=== PATIENT | female | born 1980 | race Caucasian/White ===

== ENCOUNTER 2016-08-25 11:32 | Emergency (ER) | payer MEDICAID ==
[~2016-08-25] VITALS: Ht 154.9 cm; Wt 100.0 kg
[~2016-08-25 11:32] MED LIST: ABILIFY 10MG TA10 MG PO; ANTIVERT 25MG25 MG PO; ANXIETY MED; ATARAX 25MG25 MG/TAB PO; BACTRIM DS 8001 TAB PO; BUSPAR DIVIDOSE15 MG PO; BUSPAR10 MG PO; CARAFATE 1GM1 G PO; CELEXA 20MG20 MG/TAB PO; CEPHALEXIN500 M1 PO; CIPRO 500MG TA500 MG PO; CLEOCIN HC150 MG/CAP PO; CLONAZEPAM PO; DIAZEPAM PO; DIET MED; DOXYCYCLINE 10100 MG PO; DROSPIRENONE; EPI EZ PEN1 MG/ML IM; FLEXERIL 1010 MG/TAB PO; FLEXERIL PO; FLEXERIL10 MG PO; GLUCOPHAGE500 MG/TAB PO; INDERAL 10MG10 MG PO; KLONOPIN 0.5MG0.5 MG PO; LAMICTAL 25MG T25 MG PO; LAMICTAL150 MG PO; LEVAQUIN 750MG750 M1 PO; LORTAB 5/500 501 TAB PO; MACROBID 1100 MG/CAP PO; MEDROL 4MG DOSPA4 MG PO; METRONIDAZOLE500 MG PO; MOTRIN 800800 MG/TAB PO; MOTRIN800 MG PO; NAPROSYN PO; NAPROSYN500 MG PO; NAPROXEN EC500 MG PO; NO HOME MEDICATIONS; NORCO 325 MG-51 TAB PO; NORCO 325 MG-7.1 TAB PO; PANTOPRAZOLE40 MG PO; PAROXETINE20 MG PO; PERCOCET 325 MG1 TA2 PO; PERCOCET 5/321 UDTAB PO; PHENERGAN 25 TA25 MG PO; PHENERGAN W/CO120 ML PO; PHENERGAN25 MG RC; PREDNISONE20 MG PO; PRENATAL1 TA1 PO; PRIL40 PO; PROTONIX 40MG T40 MG PO; SEPTRA DS 8001 TAB PO; TYLENOL W/COD1 UDTAB PO; ULTRAM 50MG TAB50 MG PO; VALIUM 5MG T5 MG/TAB PO; VALIUM5 MG PO; VISTARIL 2525 MG/CAP; WELLBUTRIN PO; YAZ; ZITHROMAX 250M250 MG PO; ZITHROMAX Z PA250 MG PO; ZOFRAN ODT4 MG PO; ZOLOFT 25MG25 MG PO; ZOLOFT 50MG50 MG PO; [UNRECOGNIZED DRUG - REMARK]; phentermine
[2016-08-25 11:49] VITALS: BP 122/70; PULSE 55; TEMP 97.7
== END 2016-08-25 12:09 | disposition left against medical advice (07) ==
LOC: COL.ER 11:32
DX: M54.5 Low back pain (principal)

== ENCOUNTER 2016-10-24 23:26 | Emergency (ER) | payer MEDICAID ==
[~2016-10-24] VITALS: Ht 154.9 cm; Wt 90.9 kg
[2016-10-24 23:30] VITALS: BP 127/80; TEMP 98.3
[2016-10-25 00:33] VITALS: PULSE 75
== END 2016-10-25 00:33 | disposition home or self-care (01) ==
LOC: COL.ER 23:26
DX: J06.9 Acute upper respiratory infection, unspecified (principal); E11.9 Type 2 diabetes mellitus without complications; F17.210 Nicotine dependence, cigarettes, uncomplicated

== ENCOUNTER 2016-11-05 17:27 | Emergency (ER) | payer MEDICAID ==
[~2016-11-05] VITALS: Ht 154.9 cm; Wt 90.9 kg
[2016-11-05 17:39] VITALS: BP 115/75; TEMP 98.2
[2016-11-05] MEDS ORDERED: FLEXERIL 1010 MG/TAB PO (19:28)
[2016-11-05] MEDS ORDERED: NORCO 325 MG-51 TAB PO (19:28)
[2016-11-05 19:39] VITALS: PULSE 78
== END 2016-11-05 19:39 | disposition home or self-care (01) ==
LOC: COL.ER 17:27
DX: M25.511 Pain in right shoulder (principal); M62.830 Muscle spasm of back
CPT/HCPCS: J2360

== ENCOUNTER 2016-12-08 10:21 | Emergency (ER) | payer MEDICAID ==
[~2016-12-08] VITALS: Ht 154.9 cm; Wt 90.9 kg
[2016-12-08 10:23] VITALS: TEMP 98.4
[2016-12-08 10:56] LABS: AMPHETAMINE URINE NEGATIVE; BARBITURATES URINE NEGATIVE; BENZODIAZEPINES URINE NEGATIVE; METHADONE URINE NEGATIVE; OPIATES URINE NEGATIVE; OXYCODONE URINE NEGATIVE; PHENCYCLIDINE URINE NEGATIVE; PROPOXYPHENE URINE NEGATIVE; THC CANNABINOIDS URINE POSITIVE
[2016-12-08 11:05] LABS: BASO % 0.5 % (0.0-2.0); EOS # 0.1 (0.0-0.7); EOS % 1.7 % (0-4.0); GRAN # 5.5 (1.4-6.5); HEMATOCRIT 40.9 % (37.0-47.0); HEMOGLOBIN 13.9 g/dl (12.5-16.0); LYMPH # 2.2 (1.2-3.4); LYMPH % 26.1 % (20.0-51.0); MEAN CELL VOLUME 88 fl (80.0-100.0); MEAN CORPUSCULAR HEMOGLOBIN 30 pg (27.0-31.0); MEAN CORPUSCULAR HGB CONC 34 g/dl (33.0-37.0); MEAN PLATELET VOLUME 10.6 fl (7.4-10.4); MONO # 0.6 (0.1-0.6); MONO % 6.5 % (1.7-9.3); PLATELET COUNT 256 K/mm3 (130-400); RED BLOOD COUNT 4.66 M/mm3 (4.10-5.30); REDCELL DISTRIBUTION WIDTH-CV 13.2 % (11.5-14.5); WHITE BLOOD COUNT 8.4 K/mm3 (4.8-10.8)
[2016-12-08 11:15] LABS: ADJUSTED CALCIUM 9.2 mg/dL (8.4-10.2); ALANINE AMINOTRANSFERASE 19 U/L (9-52); ALKALINE PHOSPHATASE 85 U/L (50-136); ANION GAP 11 mmol/L (7-16); BILIRUBIN,TOTAL 1.1 mg/dL (0.0-1.0); BLOOD UREA NITROGEN 8 mg/dL (7-17); CALCIUM 9.2 mg/dL (8.4-10.2); CARBON DIOXIDE 24 mmol/L (22-30); CHLORIDE 105 mmol/L (98-107); CREATININE, serum 0.69 mg/dL (0.52-1.25); GLUCOSE 100 mg/dL (74-106); POTASSIUM 3.8 mmol/L (3.4-5.0); SODIUM 140 mmol/L (137-145); TOTAL PROTEIN 7.2 gm/dL (6.4-8.2)
[2016-12-08 13:00] VITALS: BP 134/78; PULSE 62
== END 2016-12-08 13:04 | disposition home or self-care (01) ==
LOC: COL.ER 10:21
PROVIDERS: Family Medicine
DX: F32.9 Major depressive disorder, single episode, unspecified (principal); R45.851 Suicidal ideations

== ENCOUNTER 2016-12-15 02:11 | Emergency (ER) | payer MEDICAID ==
[~2016-12-15] VITALS: Ht 154.9 cm; Wt 90.0 kg
[2016-12-15 02:13] VITALS: BP 140/85; TEMP 98
[2016-12-15] MEDS ORDERED: ZOLOFT 100MG100 MG PO (02:18)
[2016-12-15] MEDS ORDERED: ABILIFY2 MG PO (02:18)
[2016-12-15] MEDS ORDERED: BUSPAR10 MG PO (02:18)
[2016-12-15] MEDS ORDERED: BACTRIM DS 8001 TAB PO (02:39)
[2016-12-15 02:50] VITALS: PULSE 90
== END 2016-12-15 02:51 | disposition home or self-care (01) ==
LOC: COL.ER 02:11
DX: S60.021A Contusion of right index finger without damage to nail, initial encounter (principal); S60.410A Abrasion of right index finger, initial encounter; Y04.1XXA Assault by human bite, initial encounter

== ENCOUNTER 2017-01-02 12:19 | Emergency (ER) | payer MEDICAID ==
[~2017-01-02] VITALS: Ht 154.9 cm; Wt 92.3 kg
[~2017-01-02 12:19] MED LIST changes: +ABILIFY2 MG PO; +ZOLOFT 100MG100 MG PO
[2017-01-02 12:35] VITALS: BP 125/77; PULSE 64; TEMP 98.1
[2017-01-02] MEDS ORDERED: ELIMITE TOP (13:32)
== END 2017-01-02 14:01 | disposition home or self-care (01) ==
LOC: COL.ER 12:19
DX: B86 Scabies (principal)

== ENCOUNTER 2017-03-04 18:27 | Emergency (ER) | payer MEDICAID ==
[~2017-03-04] VITALS: Ht 157.5 cm; Wt 86.4 kg
[~2017-03-04 18:27] MED LIST changes: +ELIMITE TOP
[2017-03-04 18:31] VITALS: TEMP 98.1
[2017-03-04] MEDS ORDERED: PHENERGAN 25 TA25 MG PO (20:05)
[2017-03-04 20:59] VITALS: BP 100/55; PULSE 59
== END 2017-03-04 21:01 | disposition home or self-care (01) ==
LOC: COL.ER 18:27
DX: R51 Headache (principal)
CPT/HCPCS: J1200; J1630; J7030

== ENCOUNTER 2017-07-06 16:06 | Emergency (ER) | payer MEDICAID ==
[~2017-07-06] VITALS: Ht 154.9 cm; Wt 86.4 kg
[2017-07-06 16:07] VITALS: BP 117/86; PULSE 116; TEMP 99
[2017-07-06] MEDS ORDERED: KLONOPIN 0.5MG0.5 MG PO (16:12)
[2017-07-06 16:43] LABS: COLLECTION METHOD CLEAN CATCH
[2017-07-06 16:57] LABS: AMORPHOUS CRYSTAL Present /uL; MUCOUS Present /lpf; PH 9 (5-8); URINE APPEARANCE Cloudy; URINE BACTERIA None Seen /hpf; URINE BILIRUBIN Negative (NEGATIVE); URINE BLOOD Negative (NEGATIVE); URINE COLOR Yellow; URINE GLUCOSE Negative (NEGATIVE); URINE KETONE Negative (NEGATIVE); URINE LEUKOCYTE ESTERASE Negative (NEGATIVE); URINE PROTEIN(semi-quant) 2+ (NEGATIVE)
[2017-07-06 17:03] LABS: BASO % 0.3 % (0.0-2.0); EOS # 0.1 (0.0-0.7); EOS % 1.4 % (0-4.0); GRAN # 6.8 (1.4-6.5); GRAN % 70.8 % (42.2-75.2); HEMATOCRIT 43.3 % (37.0-47.0); HEMOGLOBIN 14.6 g/dl (12.5-16.0); LYMPH # 1.9 (1.2-3.4); LYMPH % 19.4 % (20.0-51.0); MEAN CELL VOLUME 89 fl (80.0-100.0); MEAN CORPUSCULAR HEMOGLOBIN 30 pg (27.0-31.0); MEAN CORPUSCULAR HGB CONC 34 g/dl (33.0-37.0); MEAN PLATELET VOLUME 10.2 fl (7.4-10.4); MONO # 0.8 (0.1-0.6); MONO % 7.9 % (1.7-9.3); PLATELET COUNT 252 K/mm3 (130-400); RED BLOOD COUNT 4.85 M/mm3 (4.10-5.30); WHITE BLOOD COUNT 9.6 K/mm3 (4.8-10.8)
[2017-07-06 17:10] LABS: AMPHETAMINE URINE NEGATIVE; BARBITURATES URINE NEGATIVE; BENZODIAZEPINES URINE NEGATIVE; BUPRENORPHINE URINE NEGATIVE; METHADONE URINE NEGATIVE; OPIATES URINE NEGATIVE; OXYCODONE URINE NEGATIVE; PHENCYCLIDINE URINE NEGATIVE; PROPOXYPHENE URINE NEGATIVE; THC CANNABINOIDS URINE POSITIVE; TRICYCLIC ANTIDEPRESS URINE NEGATIVE
[2017-07-06 17:21] LABS: ACETAMINOPHEN < 10 ug/mL (10-30); ADJUSTED CALCIUM 9.3 mg/dL (8.4-10.2); ALANINE AMINOTRANSFERASE 21 U/L (9-52); ALBUMIN 4.4 gm/dL (3.5-5.0); ALCOHOL(ethanol),MEDICAL < 10 mg/dL; ALKALINE PHOSPHATASE 84 U/L (50-136); ANION GAP 9 mmol/L (7-16); BILIRUBIN,TOTAL 1.1 mg/dL (0.0-1.0); BLOOD UREA NITROGEN 10 mg/dL (7-17); CALCIUM 9.6 mg/dL (8.4-10.2); CARBON DIOXIDE 32 mmol/L (22-30); CHLORIDE 98 mmol/L (98-107); CREATININE, serum 0.81 mg/dL (0.52-1.25); GLUCOSE 79 mg/dL (74-106); POTASSIUM 3.2 mmol/L (3.4-5.0); SALICYLATE < 1.0 mg/dL; SODIUM 139 mmol/L (137-145); TOTAL PROTEIN 7.8 gm/dL (6.4-8.2)
== END 2017-07-06 18:46 | disposition home or self-care (01) ==
LOC: COL.ER 16:06
PROVIDERS: Emergency Medicine
DX: F31.9 Bipolar disorder, unspecified (principal); F12.10 Cannabis abuse, uncomplicated; F15.10 Other stimulant abuse, uncomplicated; F17.210 Nicotine dependence, cigarettes, uncomplicated

== ENCOUNTER 2017-07-20 10:13 | Emergency (ER) | payer MEDICAID ==
[~2017-07-20] VITALS: Ht 154.9 cm; Wt 85.5 kg
[2017-07-20 10:15] VITALS: TEMP 98.2
[2017-07-20 11:16] LABS: COLLECTION METHOD CLEAN CATCH
[2017-07-20 11:17] LABS: BASO % 0.5 % (0.0-2.0); EOS # 0.1 (0.0-0.7); EOS % 1.1 % (0-4.0); GRAN % 71.7 % (42.2-75.2); HEMATOCRIT 42.7 % (37.0-47.0); HEMOGLOBIN 14.9 g/dl (12.5-16.0); LYMPH # 1.6 (1.2-3.4); LYMPH % 19.5 % (20.0-51.0); MEAN CELL VOLUME 85 fl (80.0-100.0); MEAN CORPUSCULAR HEMOGLOBIN 30 pg (27.0-31.0); MEAN CORPUSCULAR HGB CONC 35 g/dl (33.0-37.0); MEAN PLATELET VOLUME 10.1 fl (7.4-10.4); MONO # 0.6 (0.1-0.6); MONO % 6.8 % (1.7-9.3); PLATELET COUNT 292 K/mm3 (130-400); WHITE BLOOD COUNT 8.3 K/mm3 (4.8-10.8)
[2017-07-20 11:37] LABS: ADJUSTED CALCIUM 9.2 mg/dL (8.4-10.2); ALBUMIN 4.4 gm/dL (3.5-5.0); BILIRUBIN,TOTAL 1.7 mg/dL (0.0-1.0); CALCIUM 9.5 mg/dL (8.4-10.2); CREATININE, serum 0.76 mg/dL (0.52-1.25); POTASSIUM 3.3 mmol/L (3.4-5.0); TOTAL PROTEIN 7.9 gm/dL (6.4-8.2)
[2017-07-20 11:39] LABS: PH 9 (5-8); SQUAMOUS EPITHELIAL 0-2 /hpf; URINE APPEARANCE Clear; URINE BACTERIA None Seen /hpf; URINE BILIRUBIN Negative (NEGATIVE); URINE BLOOD Negative (NEGATIVE); URINE COLOR Yellow; URINE GLUCOSE Negative (NEGATIVE); URINE KETONE Negative (NEGATIVE); URINE LEUKOCYTE ESTERASE 1+ (NEGATIVE); URINE PROTEIN(semi-quant) 2+ (NEGATIVE); URINE UROBILINOGEN Negative (NEGATIVE)
[2017-07-20 11:53] LABS: AMPHETAMINE URINE NEGATIVE; BARBITURATES URINE NEGATIVE; BENZODIAZEPINES URINE NEGATIVE; BUPRENORPHINE URINE NEGATIVE; METHADONE URINE NEGATIVE; OPIATES URINE NEGATIVE; OXYCODONE URINE NEGATIVE; PHENCYCLIDINE URINE NEGATIVE; PROPOXYPHENE URINE NEGATIVE; THC CANNABINOIDS URINE POSITIVE; TRICYCLIC ANTIDEPRESS URINE NEGATIVE
[2017-07-20] MEDS ORDERED: MACROBID 1100 MG/CAP PO (13:10)
[2017-07-20 13:23] VITALS: BP 123/70; PULSE 72
== END 2017-07-20 13:24 | disposition home or self-care (01) ==
LOC: COL.ER 10:13
PROVIDERS: Emergency Medicine
DX: F41.0 Panic disorder [episodic paroxysmal anxiety] (principal); N39.0 Urinary tract infection, site not specified; R20.2 Paresthesia of skin; F31.9 Bipolar disorder, unspecified; Z90.49 Acquired absence of other specified parts of digestive tract; Z98.890 Other specified postprocedural states; F17.210 Nicotine dependence, cigarettes, uncomplicated; F15.90 Other stimulant use, unspecified, uncomplicated

== ENCOUNTER 2017-09-13 10:05 | Emergency (ER) | payer MEDICAID ==
[~2017-09-13] VITALS: Ht 154.9 cm; Wt 88.6 kg
[2017-09-13 10:17] VITALS: BP 139/81; TEMP 98.7
[2017-09-13] MEDS ORDERED: CLEOCIN HCL300 MG PO (11:36)
[2017-09-13 11:51] VITALS: PULSE 80
== END 2017-09-13 11:52 | disposition home or self-care (01) ==
LOC: COL.ER 10:05
DX: L03.211 Cellulitis of face (principal); J45.909 Unspecified asthma, uncomplicated; F32.9 Major depressive disorder, single episode, unspecified; F17.210 Nicotine dependence, cigarettes, uncomplicated

== ENCOUNTER 2017-10-06 08:47 | Emergency (ER) | payer MEDICAID ==
[~2017-10-06] VITALS: Ht 154.9 cm; Wt 84.1 kg
[~2017-10-06 08:47] MED LIST changes: +CLEOCIN HCL300 MG PO
[2017-10-06 08:52] VITALS: BP 124/72
[2017-10-06] MEDS ORDERED: NORCO 325 MG-51 TAB PO (09:43)
[2017-10-06] MEDS ORDERED: CLEOCIN HC150 MG/CAP PO (09:43)
[2017-10-06 09:52] VITALS: PULSE 67; TEMP 98.3
== END 2017-10-06 09:53 | disposition home or self-care (01) ==
LOC: COL.ER 08:47
DX: L02.212 Cutaneous abscess of back [any part, except buttock and flank] (principal); K08.89 Other specified disorders of teeth and supporting structures; F17.210 Nicotine dependence, cigarettes, uncomplicated

== ENCOUNTER 2017-10-10 17:55 | Emergency (ER) | payer MEDICAID ==
[~2017-10-10] VITALS: Ht 154.9 cm; Wt 84.1 kg
[2017-10-10 17:59] VITALS: BP 143/66; TEMP 97.1
[2017-10-10 20:15] VITALS: PULSE 80
== END 2017-10-10 20:17 | disposition home or self-care (01) ==
LOC: COL.ER 17:55
DX: K02.9 Dental caries, unspecified (principal)
CPT/HCPCS: J1170

== ENCOUNTER 2018-03-06 16:08 | Emergency (ER) | payer MEDICAID ==
[~2018-03-06] VITALS: Ht 154.9 cm; Wt 94.1 kg
[2018-03-06 16:10] VITALS: BP 114/50
[2018-03-06] MEDS ORDERED: CRUTCHES MC (18:06)
[2018-03-06 18:43] VITALS: PULSE 108
== END 2018-03-06 18:45 | disposition home or self-care (01) ==
LOC: COL.ER 16:08
DX: S70.02XA Contusion of left hip, initial encounter (principal); F31.9 Bipolar disorder, unspecified; F17.210 Nicotine dependence, cigarettes, uncomplicated; F12.90 Cannabis use, unspecified, uncomplicated; Z88.0 Allergy status to penicillin; Z90.49 Acquired absence of other specified parts of digestive tract; W18.39XA Other fall on same level, initial encounter
CPT/HCPCS: J3010

== ENCOUNTER 2018-05-31 20:32 | Emergency (ER) | payer MEDICAID ==
[~2018-05-31] VITALS: Ht 157.5 cm; Wt 101.4 kg
[~2018-05-31 20:32] MED LIST changes: +CRUTCHES MC
[2018-05-31 20:37] VITALS: BP 129/79; TEMP 98.2
[2018-05-31 21:26] LABS: COLLECTION METHOD CLEAN CATCH
[2018-05-31 21:55] LABS: MUCOUS Present /lpf; PH 5 (5-8); URINE APPEARANCE Hazy; URINE BACTERIA None Seen /hpf; URINE BILIRUBIN Negative (NEGATIVE); URINE BLOOD 2+ (NEGATIVE); URINE COLOR Yellow; URINE GLUCOSE Negative (NEGATIVE); URINE KETONE Negative (NEGATIVE); URINE LEUKOCYTE ESTERASE 1+ (NEGATIVE); URINE NITRATE Negative (NEGATIVE); URINE PROTEIN(semi-quant) Negative (NEGATIVE)
[2018-05-31 22:03] LABS: BASO # 0.1 (0.0-0.2); BASO % 0.6 % (0.0-2.0); EOS # 0.2 (0.0-0.7); EOS % 1.7 % (0-4.0); GRAN # 5.6 (1.4-6.5); HEMATOCRIT 38.7 % (37.0-47.0); HEMOGLOBIN 13.2 g/dl (12.5-16.0); LYMPH # 2.5 (1.2-3.4); LYMPH % 27.4 % (20.0-51.0); MEAN CELL VOLUME 88 fl (80.0-100.0); MEAN CORPUSCULAR HEMOGLOBIN 30 pg (27.0-31.0); MEAN CORPUSCULAR HGB CONC 34 g/dl (33.0-37.0); MEAN PLATELET VOLUME 10.2 fl (7.4-10.4); MONO # 0.7 (0.1-0.6); MONO % 8.1 % (1.7-9.3); PLATELET COUNT 272 K/mm3 (130-400); RED BLOOD COUNT 4.41 M/mm3 (4.10-5.30); REDCELL DISTRIBUTION WIDTH-CV 12.2 % (11.5-14.5)
[2018-05-31 22:18] LABS: ALBUMIN 3.9 gm/dL (3.5-5.0); C-REACTIVE PROTEIN 0.8 mg/dL (0.0-0.9); CALCIUM 9.1 mg/dL (8.4-10.2); CREATININE, serum 0.69 mg/dL (0.52-1.25); POTASSIUM 4.1 mmol/L (3.4-5.0); TOTAL PROTEIN 7.3 gm/dL (6.4-8.2)
[2018-05-31] MEDS ORDERED: CEFTIN 250250 MG/TAB PO (23:41)
[2018-05-31] MEDS ORDERED: FLAGYL500 MG PO (23:41)
[2018-06-01 00:30] VITALS: PULSE 73
== END 2018-06-01 00:30 | disposition home or self-care (01) ==
LOC: COL.ER 20:32
PROVIDERS: Nurse Practitioner
DX: N39.0 Urinary tract infection, site not specified (principal); N76.0 Acute vaginitis; B96.89 Other specified bacterial agents as the cause of diseases classified elsewhere; F31.9 Bipolar disorder, unspecified; J45.909 Unspecified asthma, uncomplicated; F12.90 Cannabis use, unspecified, uncomplicated; F17.210 Nicotine dependence, cigarettes, uncomplicated; Z88.0 Allergy status to penicillin; Z88.5 Allergy status to narcotic agent; Z98.890 Other specified postprocedural states
CPT/HCPCS: J0696

== ENCOUNTER 2018-06-23 16:44 | Emergency (ER) | payer MEDICAID ==
[~2018-06-23] VITALS: Ht 154.9 cm; Wt 100.0 kg
[~2018-06-23 16:44] MED LIST changes: +CEFTIN 250250 MG/TAB PO; +FLAGYL500 MG PO
[2018-06-23 16:51] VITALS: BP 130/78; TEMP 98.6
[2018-06-23] MEDS ORDERED: ULTRAM 50MG TAB50 MG PO (19:37)
[2018-06-23 20:00] VITALS: PULSE 73
== END 2018-06-23 20:01 | disposition home or self-care (01) ==
LOC: COL.ER 16:44
DX: M25.552 Pain in left hip (principal); G89.29 Other chronic pain; F31.9 Bipolar disorder, unspecified; F17.210 Nicotine dependence, cigarettes, uncomplicated; Z91.5 Personal history of self-harm

== ENCOUNTER 2018-10-27 20:09 | Emergency (ER) | payer MEDICAID ==
[~2018-10-27] VITALS: Ht 154.9 cm; Wt 100.9 kg
[2018-10-27 20:19] VITALS: BP 133/82; TEMP 97.6
[2018-10-27 21:43] LABS: BASO % 0.5 % (0.0-2.0); EOS # 0.2 (0.0-0.7); EOS % 2.7 % (0-4.0); GRAN # 5.1 (1.4-6.5); GRAN % 61.6 % (42.2-75.2); HEMATOCRIT 45.5 % (37.0-47.0); HEMOGLOBIN 15.2 g/dl (12.5-16.0); LYMPH # 2.3 (1.2-3.4); LYMPH % 28.3 % (20.0-51.0); MEAN CELL VOLUME 87 fl (80.0-100.0); MEAN CORPUSCULAR HEMOGLOBIN 29 pg (27.0-31.0); MEAN CORPUSCULAR HGB CONC 33 g/dl (33.0-37.0); MEAN PLATELET VOLUME 10.2 fl (7.4-10.4); MONO # 0.6 (0.1-0.6); MONO % 6.7 % (1.7-9.3); PLATELET COUNT 283 K/mm3 (130-400); RED BLOOD COUNT 5.24 M/mm3 (4.10-5.30); REDCELL DISTRIBUTION WIDTH-CV 12.6 % (11.5-14.5)
[2018-10-27 21:45] LABS: INR 1.1 (0.8-3.0); PROTHROMBIN TIME 12.2 SECONDS (9.7-12.8)
[2018-10-27 21:48] LABS: PARTIAL THROMBOPLASTIN TIME 33.8 SECONDS (26.0-37.0)
[2018-10-27 21:52] LABS: ACETAMINOPHEN < 10 ug/mL (10-30); ALANINE AMINOTRANSFERASE 12 U/L (9-52); ALBUMIN 4.1 gm/dL (3.5-5.0); ALKALINE PHOSPHATASE 85 U/L (50-136); ANION GAP 7 mmol/L (7-16); AST,SGOT 18 U/L (15-37); BILIRUBIN,TOTAL 1.4 mg/dL (0.0-1.0); BLOOD UREA NITROGEN 13 mg/dL (7-17); CALCIUM 9.2 mg/dL (8.4-10.2); CARBON DIOXIDE 27 mmol/L (22-30); CHLORIDE 104 mmol/L (98-107); CREATININE, serum 0.83 mg/dL (0.52-1.25); GLUCOSE 95 mg/dL (74-106); LIPASE 56 U/L (23-300); SODIUM 138 mmol/L (137-145); TOTAL PROTEIN 7.7 gm/dL (6.4-8.2)
[2018-10-27] MEDS ORDERED: FLEXERIL 1010 MG/TAB PO (23:22)
[2018-10-28 00:05] VITALS: PULSE 88
[2018-10-28 14:52] LABS: COLLECTION METHOD CLEAN CATCH
[2018-10-28 15:05] LABS: AMORPHOUS CRYSTAL Present /uL; MUCOUS Present /lpf; PH 5 (5-8); URINE APPEARANCE Turbid; URINE BACTERIA None Seen /hpf; URINE BILIRUBIN Negative (NEGATIVE); URINE BLOOD 1+ (NEGATIVE); URINE CALCIUM OXALATE CRYSTAL Present /hpf; URINE COLOR Amber; URINE GLUCOSE Negative (NEGATIVE); URINE KETONE Negative (NEGATIVE); URINE LEUKOCYTE ESTERASE 2+ (NEGATIVE); URINE NITRATE Negative (NEGATIVE); URINE PROTEIN(semi-quant) 1+ (NEGATIVE); URINE RBC None Seen /hpf
== END 2018-10-28 00:05 | disposition home or self-care (01) ==
LOC: COL.ER 20:09
PROVIDERS: Emergency Medicine
DX: R07.89 Other chest pain (principal); F31.9 Bipolar disorder, unspecified; F17.210 Nicotine dependence, cigarettes, uncomplicated; F12.10 Cannabis abuse, uncomplicated
CPT/HCPCS: J1170

== ENCOUNTER 2018-12-16 19:14 | Emergency (ER) | payer MEDICAID ==
[~2018-12-16] VITALS: Ht 154.9 cm; Wt 94.1 kg
[2018-12-16 19:26] VITALS: BP 144/77; TEMP 97.4
[2018-12-16 20:05] VITALS: PULSE 85
== END 2018-12-16 20:05 | disposition home or self-care (01) ==
LOC: COL.ER 19:14
DX: M75.41 Impingement syndrome of right shoulder (principal); F17.210 Nicotine dependence, cigarettes, uncomplicated; W19.XXXA Unspecified fall, initial encounter; Y92.009 Unspecified place in unspecified non-institutional (private) residence as the place of occurrence of the external cause

== ENCOUNTER 2018-12-21 14:14 | Emergency (ER) | payer MEDICAID ==
[~2018-12-21] VITALS: Ht 154.9 cm; Wt 94.1 kg
[2018-12-21 14:20] VITALS: BP 126/80; TEMP 97.7
[2018-12-21] MEDS ORDERED: NORCO 325 MG-51 TAB PO (15:52)
[2018-12-21] MEDS ORDERED: FLEXERIL 1010 MG/TAB PO (15:55)
[2018-12-21 16:06] VITALS: PULSE 70
== END 2018-12-21 16:07 | disposition home or self-care (01) ==
LOC: COL.ER 14:14
DX: S49.91XA Unspecified injury of right shoulder and upper arm, initial encounter (principal); Z88.5 Allergy status to narcotic agent; Z88.0 Allergy status to penicillin; X58.XXXA Exposure to other specified factors, initial encounter; Y92.009 Unspecified place in unspecified non-institutional (private) residence as the place of occurrence of the external cause

== ENCOUNTER 2018-12-30 03:21 | Emergency (ER) | payer MEDICAID ==
[~2018-12-30] VITALS: Ht 154.9 cm; Wt 94.1 kg
[2018-12-30 03:29] VITALS: BP 129/68; TEMP 97
[2018-12-30 04:28] LABS: STREP SCREEN NEGATIVE
[2018-12-30 05:45] VITALS: PULSE 72
== END 2018-12-30 05:45 | disposition home or self-care (01) ==
LOC: COL.ER 03:21
PROVIDERS: Emergency Medicine
DX: J02.9 Acute pharyngitis, unspecified (principal); F17.210 Nicotine dependence, cigarettes, uncomplicated

== ENCOUNTER 2019-01-10 19:40 | Emergency (ER) | payer MEDICAID ==
[~2019-01-10] VITALS: Ht 154.9 cm; Wt 94.1 kg
[2019-01-10 19:46] VITALS: TEMP 99.7
[2019-01-10] MEDS ORDERED: ABILIFY5 MG PO (19:50)
[2019-01-10] MEDS ORDERED: BUSPAR10 MG PO (19:51)
[2019-01-10] MEDS ORDERED: KLONOPIN 0.5MG0.5 MG PO (19:51)
[2019-01-10] MEDS ORDERED: ZOLOFT 50MG50 MG PO (19:51)
[2019-01-10 20:18] LABS: STREP SCREEN NEGATIVE
[2019-01-10] MEDS ORDERED: ZITHROMAX Z PA250 MG PO (20:47)
[2019-01-10 21:08] VITALS: BP 141/72; PULSE 91
== END 2019-01-10 21:08 | disposition home or self-care (01) ==
LOC: COL.ER 19:40
PROVIDERS: Physician Assistant
DX: J02.9 Acute pharyngitis, unspecified (principal); F17.210 Nicotine dependence, cigarettes, uncomplicated
CPT/HCPCS: J1100

== ENCOUNTER 2019-01-26 20:13 | Emergency (ER) | payer MEDICAID ==
[~2019-01-26] VITALS: Ht 154.9 cm; Wt 94.1 kg
[~2019-01-26 20:13] MED LIST changes: +ABILIFY5 MG PO
[2019-01-26 20:28] VITALS: TEMP 98.4
[2019-01-26] MEDS ORDERED: NYSTATIN OR100 MU/ML PO (20:41)
[2019-01-26 21:07] VITALS: BP 110/68; PULSE 88
== END 2019-01-26 21:07 | disposition home or self-care (01) ==
LOC: COL.ER 20:13
DX: B37.9 Candidiasis, unspecified (principal); J45.909 Unspecified asthma, uncomplicated; F17.210 Nicotine dependence, cigarettes, uncomplicated

== ENCOUNTER 2019-01-30 20:03 | Emergency (ER) | payer MEDICAID ==
[~2019-01-30] VITALS: Ht 154.9 cm; Wt 94.1 kg
[~2019-01-30 20:03] MED LIST changes: +NYSTATIN OR100 MU/ML PO
[2019-01-30 20:06] VITALS: TEMP 98.8
[2019-01-30] MEDS ORDERED: FLEXERIL 1010 MG/TAB PO (20:58)
[2019-01-30] MEDS ORDERED: NORCO 325 MG-51 TAB PO (20:58)
[2019-01-30 21:06] VITALS: BP 134/81; PULSE 104
== END 2019-01-30 21:06 | disposition home or self-care (01) ==
LOC: COL.ER 20:03
DX: S39.012A Strain of muscle, fascia and tendon of lower back, initial encounter (principal); M54.42 Lumbago with sciatica, left side; F31.9 Bipolar disorder, unspecified; F41.9 Anxiety disorder, unspecified; Z98.51 Tubal ligation status; Z98.890 Other specified postprocedural states; Z90.49 Acquired absence of other specified parts of digestive tract; Z88.5 Allergy status to narcotic agent; Z88.0 Allergy status to penicillin; F17.210 Nicotine dependence, cigarettes, uncomplicated; F12.90 Cannabis use, unspecified, uncomplicated

== ENCOUNTER 2019-02-15 22:27 | Emergency (ER) | payer MEDICAID ==
[~2019-02-15] VITALS: Ht 154.9 cm; Wt 88.6 kg
[2019-02-15 22:42] VITALS: BP 126/77; PULSE 63; TEMP 97.9
== END 2019-02-16 | disposition left against medical advice (07) ==
LOC: COL.ER 22:27
DX: R51 Headache (principal)

== ENCOUNTER 2019-02-28 16:41 | Emergency (ER) | payer MEDICAID ==
[~2019-02-28] VITALS: Ht 152.4 cm; Wt 86.4 kg
[2019-02-28 16:55] VITALS: BP 126/84; TEMP 96
[2019-02-28 19:46] VITALS: PULSE 85
== END 2019-02-28 19:47 | disposition home or self-care (01) ==
LOC: COL.ER 16:41
DX: R51 Headache (principal); J45.909 Unspecified asthma, uncomplicated; F31.9 Bipolar disorder, unspecified; F17.210 Nicotine dependence, cigarettes, uncomplicated; F12.10 Cannabis abuse, uncomplicated; Z88.0 Allergy status to penicillin; Z88.6 Allergy status to analgesic agent
CPT/HCPCS: J1200; J2765

== ENCOUNTER 2019-08-28 09:58 | Emergency (ER) | payer SELFPAY ==
[~2019-08-28] VITALS: Ht 152.4 cm; Wt 95.5 kg
[2019-08-28 10:13] VITALS: TEMP 98.2
[2019-08-28 12:56] LABS: BASO # 0.1 (0.0-0.2); BASO % 0.7 % (0.0-2.0); EOS # 0.2 (0.0-0.7); EOS % 2.7 % (0-4.0); GRAN # 5.4 (1.4-6.5); GRAN % 66.4 % (42.2-75.2); HEMATOCRIT 41.5 % (37.0-47.0); HEMOGLOBIN 13.8 g/dl (12.5-16.0); LYMPH # 1.8 (1.2-3.4); LYMPH % 22.2 % (20.0-51.0); MEAN CELL VOLUME 91 fl (80.0-100.0); MEAN CORPUSCULAR HEMOGLOBIN 30 pg (27.0-31.0); MEAN CORPUSCULAR HGB CONC 33 g/dl (33.0-37.0); MEAN PLATELET VOLUME 10.5 fl (7.4-10.4); MONO # 0.6 (0.1-0.6); MONO % 7.5 % (1.7-9.3); PLATELET COUNT 237 K/mm3 (130-400); RED BLOOD COUNT 4.58 M/mm3 (4.10-5.30); REDCELL DISTRIBUTION WIDTH-CV 12.3 % (11.5-14.5)
[2019-08-28 13:18] LABS: ERYTHROCYTE SEDIMENTATION RATE 6 mm/hr (0-20)
[2019-08-28] MEDS ORDERED: PREDNISONE20 MG PO (13:36)
[2019-08-28] MEDS ORDERED: FLEXERIL 1010 MG/TAB PO (13:36)
[2019-08-28 14:01] VITALS: BP 122/75; PULSE 71
== END 2019-08-28 14:02 | disposition home or self-care (01) ==
LOC: COL.ER 09:58
PROVIDERS: Physician Assistant
DX: M25.552 Pain in left hip (principal); M54.9 Dorsalgia, unspecified; G89.29 Other chronic pain; F17.210 Nicotine dependence, cigarettes, uncomplicated; Z79.899 Other long term (current) drug therapy; Z88.0 Allergy status to penicillin; Z88.6 Allergy status to analgesic agent; Z98.890 Other specified postprocedural states

== ENCOUNTER 2019-10-09 20:40 | Emergency (ER) | payer SELFPAY ==
[~2019-10-09] VITALS: Ht 152.4 cm; Wt 100.0 kg
[2019-10-09 21:04] VITALS: BP 120/79; TEMP 98.6
[2019-10-09 22:11] LABS: STREP SCREEN NEGATIVE
[2019-10-09 22:50] VITALS: PULSE 58
== END 2019-10-09 22:50 | disposition home or self-care (01) ==
LOC: COL.ER 20:40
PROVIDERS: Nurse Practitioner
DX: J06.9 Acute upper respiratory infection, unspecified (principal); J45.909 Unspecified asthma, uncomplicated; F31.9 Bipolar disorder, unspecified; F17.210 Nicotine dependence, cigarettes, uncomplicated; Z88.0 Allergy status to penicillin; Z88.5 Allergy status to narcotic agent; Z79.52 Long term (current) use of systemic steroids

== ENCOUNTER 2019-10-20 23:13 | Emergency (ER) | payer SELFPAY ==
[~2019-10-20] VITALS: Ht 152.4 cm; Wt 100.0 kg
[2019-10-20 23:24] VITALS: BP 125/76; TEMP 98
[2019-10-21 01:49] LABS: BASO % 0.3 % (0.0-2.0); EOS # 0.2 (0.0-0.7); EOS % 1.6 % (0-4.0); GRAN # 6.8 (1.4-6.5); GRAN % 63.7 % (42.2-75.2); HEMATOCRIT 43.3 % (37.0-47.0); HEMOGLOBIN 14.4 g/dl (12.5-16.0); LYMPH # 2.7 (1.2-3.4); LYMPH % 25.6 % (20.0-51.0); MEAN CELL VOLUME 89 fl (80.0-100.0); MEAN CORPUSCULAR HEMOGLOBIN 30 pg (27.0-31.0); MEAN CORPUSCULAR HGB CONC 33 g/dl (33.0-37.0); MEAN PLATELET VOLUME 10.2 fl (7.4-10.4); MONO # 0.9 (0.1-0.6); MONO % 8.3 % (1.7-9.3); PLATELET COUNT 295 K/mm3 (130-400); RED BLOOD COUNT 4.85 M/mm3 (4.10-5.30); REDCELL DISTRIBUTION WIDTH-CV 12.5 % (11.5-14.5)
[2019-10-21 02:07] LABS: ALBUMIN 4.3 gm/dL (3.5-5.0); BILIRUBIN,TOTAL 0.9 mg/dL (0.0-1.0); CALCIUM 9.3 mg/dL (8.4-10.2); CREATININE, serum 0.66 (0.52-1.25); POTASSIUM 3.6 mmol/L (3.4-5.0); TOTAL PROTEIN 7.7 gm/dL (6.4-8.2)
[2019-10-21 02:32] VITALS: PULSE 88
== END 2019-10-21 02:31 | disposition home or self-care (01) ==
LOC: COL.ER 23:13
PROVIDERS: Emergency Medicine
DX: Z00.00 Encounter for general adult medical examination without abnormal findings (principal); F17.210 Nicotine dependence, cigarettes, uncomplicated; Z90.89 Acquired absence of other organs

== ENCOUNTER 2020-01-13 21:19 | Emergency (ER) | payer SELFPAY ==
[~2020-01-13] VITALS: Ht 152.4 cm; Wt 97.7 kg
[2020-01-13] MEDS ORDERED: ZITHROMAX 250M250 MG PO (22:50)
[2020-01-13] MEDS ORDERED: PREDNISONE20 MG PO (22:50)
[2020-01-13 23:35] VITALS: BP 110/78; PULSE 88; TEMP 98.8
== END 2020-01-13 23:45 | disposition home or self-care (01) ==
LOC: COL.ER 21:19
DX: J45.909 Unspecified asthma, uncomplicated (principal); F17.210 Nicotine dependence, cigarettes, uncomplicated; Z20.828 Contact with and (suspected) exposure to other viral communicable diseases
CPT/HCPCS: J7512

== ENCOUNTER 2020-01-16 19:35 | Emergency (ER) | payer SELFPAY ==
[~2020-01-16] VITALS: Ht 165.1 cm; Wt 79.5 kg
[2020-01-16] MEDS ORDERED: ZITHROMAX 250M250 MG PO (20:18)
[2020-01-16] MEDS ORDERED: TUSS PO (20:18)
[2020-01-16] MEDS ORDERED: PREDNISONE10 MG PO (21:58)
[2020-01-16 22:12] VITALS: BP 126/73; PULSE 90; TEMP 98.1
== END 2020-01-16 22:14 | disposition home or self-care (01) ==
LOC: COL.ER 19:35
DX: J44.1 Chronic obstructive pulmonary disease with (acute) exacerbation (principal); J20.9 Acute bronchitis, unspecified; Z79.52 Long term (current) use of systemic steroids
CPT/HCPCS: J7512

== ENCOUNTER 2020-03-15 19:48 | Emergency (ER) | payer SELFPAY ==
[~2020-03-15] VITALS: Ht 152.4 cm; Wt 100.0 kg
[~2020-03-15 19:48] MED LIST changes: +PREDNISONE10 MG PO; +TUSS PO
[2020-03-15 20:25] LABS: ALANINE AMINOTRANSFERASE 14 U/L (4-34); ALBUMIN 4.2 gm/dL (3.5-5.0); ALKALINE PHOSPHATASE 84 U/L (50-136); ANION GAP 10 mmol/L (7-16); AST,SGOT 20 U/L (15-37); BLOOD UREA NITROGEN 20 mg/dL (7-17); CALCIUM 10.2 mg/dL (8.4-10.2); CARBON DIOXIDE 21 mmol/L (22-30); CHLORIDE 106 mmol/L (98-107); CREATININE, serum 0.81 (0.52-1.25); GLUCOSE 102 mg/dL (74-106); LIPASE 100 U/L (23-300); POTASSIUM 3.5 mmol/L (3.4-5.0); SODIUM 136 mmol/L (137-145); TOTAL PROTEIN 7.9 gm/dL (6.4-8.2)
[2020-03-15 20:35] LABS: BASO % 0.4 % (0.0-2.0); EOS # 0.3 (0.0-0.7); EOS % 2.5 % (0-4.0); GRAN # 5.9 (1.4-6.5); GRAN % 59.2 % (42.2-75.2); HEMATOCRIT 41.8 % (37.0-47.0); HEMOGLOBIN 14.5 g/dl (12.5-16.0); LYMPH % 30.1 % (20.0-51.0); MEAN CELL VOLUME 87 fl (80.0-100.0); MEAN CORPUSCULAR HEMOGLOBIN 30 pg (27.0-31.0); MEAN CORPUSCULAR HGB CONC 35 g/dl (33.0-37.0); MEAN PLATELET VOLUME 10.5 fl (7.4-10.4); MONO # 0.7 (0.1-0.6); MONO % 7.3 % (1.7-9.3); PLATELET COUNT 261 K/mm3 (130-400); RED BLOOD COUNT 4.79 M/mm3 (4.10-5.30); REDCELL DISTRIBUTION WIDTH-CV 12.5 % (11.5-14.5)
[2020-03-15 20:49] LABS: TROPONIN-I < 0.012 ng/mL (0.000-0.035)
[2020-03-15 23:15] VITALS: BP 134/72; PULSE 80; TEMP 97.1
== END 2020-03-15 23:15 | disposition home or self-care (01) ==
LOC: COL.ER 19:48
PROVIDERS: Emergency Medicine
DX: R07.81 Pleurodynia (principal); F41.9 Anxiety disorder, unspecified; R06.4 Hyperventilation; J44.9 Chronic obstructive pulmonary disease, unspecified; F17.210 Nicotine dependence, cigarettes, uncomplicated; Z32.02 Encounter for pregnancy test, result negative; Z79.52 Long term (current) use of systemic steroids; Z88.0 Allergy status to penicillin; Z88.6 Allergy status to analgesic agent
CPT/HCPCS: J7030

== ENCOUNTER 2020-03-25 20:15 | Emergency (ER) | payer SELFPAY ==
[~2020-03-25] VITALS: Ht 152.4 cm; Wt 100.0 kg
[2020-03-25 20:19] VITALS: TEMP 98.3
[2020-03-25] MEDS ORDERED: IBU400 MG (20:29)
[2020-03-25] MEDS ORDERED: NORCO 325 MG-51 TAB PO (21:36)
[2020-03-25 21:46] VITALS: BP 140/76; PULSE 87
== END 2020-03-25 21:46 | disposition home or self-care (01) ==
LOC: COL.ER 20:15
DX: S83.91XA Sprain of unspecified site of right knee, initial encounter (principal); S80.01XA Contusion of right knee, initial encounter; W19.XXXA Unspecified fall, initial encounter; Y92.009 Unspecified place in unspecified non-institutional (private) residence as the place of occurrence of the external cause; J44.9 Chronic obstructive pulmonary disease, unspecified; F17.210 Nicotine dependence, cigarettes, uncomplicated

== ENCOUNTER 2020-04-09 11:30 | Emergency (ER) | payer SELFPAY ==
[~2020-04-09] VITALS: Ht 152.4 cm; Wt 117.3 kg
[~2020-04-09 11:30] MED LIST changes: +IBU400 MG
[2020-04-09 11:36] VITALS: TEMP 97.4
[2020-04-09] MEDS ORDERED: CLEOCIN HCL300 MG PO (11:52)
[2020-04-09 11:53] VITALS: BP 145/84; PULSE 69
== END 2020-04-09 12:00 | disposition home or self-care (01) ==
LOC: COL.ER 11:30
DX: N76.89 Other specified inflammation of vagina and vulva (principal); Z88.0 Allergy status to penicillin; Z88.6 Allergy status to analgesic agent; Z90.49 Acquired absence of other specified parts of digestive tract

== ENCOUNTER → 2020-05-21 | Outpatient (CLI) | payer SELFPAY | LOC: COL.RAD 12:25 | DX: S83.211A Bucket-handle tear of medial meniscus, current injury, right knee, initial encounter (principal); M71.21 Synovial cyst of popliteal space [Baker], right knee ==

== ENCOUNTER 2020-06-06 17:11 | Emergency (ER) | payer SELFPAY ==
[~2020-06-06] VITALS: Ht 152.4 cm; Wt 100.0 kg
[2020-06-06 17:14] VITALS: TEMP 98.8
[2020-06-06 18:12] LABS: BASO # 0.1 (0.0-0.2); BASO % 0.6 % (0.0-2.0); EOS # 0.3 (0.0-0.7); EOS % 3.8 % (0-4.0); GRAN # 4.8 (1.4-6.5); GRAN % 56.5 % (42.2-75.2); HEMATOCRIT 44.7 % (37.0-47.0); HEMOGLOBIN 15.2 g/dl (12.5-16.0); LYMPH # 2.7 (1.2-3.4); LYMPH % 31.6 % (20.0-51.0); MEAN CELL VOLUME 88 fl (80.0-100.0); MEAN CORPUSCULAR HEMOGLOBIN 30 pg (27.0-31.0); MEAN CORPUSCULAR HGB CONC 34 g/dl (33.0-37.0); MONO # 0.6 (0.1-0.6); MONO % 7.1 % (1.7-9.3); PLATELET COUNT 289 K/mm3 (130-400); RED BLOOD COUNT 5.07 M/mm3 (4.10-5.30); REDCELL DISTRIBUTION WIDTH-CV 12.4 % (11.5-14.5)
[2020-06-06 18:22] LABS: ALANINE AMINOTRANSFERASE 19 U/L (4-34); ALBUMIN 4.3 gm/dL (3.5-5.0); ALKALINE PHOSPHATASE 95 U/L (50-136); ANION GAP 8 mmol/L (7-16); AST,SGOT 22 U/L (15-37); BILIRUBIN,TOTAL 0.7 mg/dL (0.0-1.0); BLOOD UREA NITROGEN 15 mg/dL (7-17); CALCIUM 9.3 mg/dL (8.4-10.2); CARBON DIOXIDE 27 mmol/L (22-30); CHLORIDE 105 mmol/L (98-107); CREATININE, serum 0.77 (0.52-1.25); GLUCOSE 130 mg/dL (74-106); POTASSIUM 3.6 mmol/L (3.4-5.0); SODIUM 139 mmol/L (137-145); TOTAL PROTEIN 7.8 gm/dL (6.4-8.2)
[2020-06-06 18:41] LABS: TROPONIN-I < 0.012 ng/mL (0.000-0.035)
[2020-06-06] MEDS ORDERED: PREDNISONE20 MG PO (18:41)
[2020-06-06] MEDS ORDERED: ZITHROMAX Z PA250 MG PO (18:41)
[2020-06-06 18:59] VITALS: BP 118/7; PULSE 77
== END 2020-06-06 19:00 | disposition home or self-care (01) ==
LOC: COL.ER 17:11
PROVIDERS: Family Medicine
DX: J20.9 Acute bronchitis, unspecified (principal); Z88.0 Allergy status to penicillin; Z88.6 Allergy status to analgesic agent; Z87.891 Personal history of nicotine dependence; Z20.828 Contact with and (suspected) exposure to other viral communicable diseases
CPT/HCPCS: J1100

== ENCOUNTER → 2020-06-24 | Emergency (ER) | payer SELFPAY ==
[~2020-06-24] MED LIST changes: +TYLENOL 325MG325 MG PO
== END ==
LOC: COL.ER 21:07
DX: R69 Illness, unspecified (principal); Z53.21 Procedure and treatment not carried out due to patient leaving prior to being seen by health care provider

== ENCOUNTER 2020-10-14 10:47 | Emergency (ER) | payer SELFPAY ==
[~2020-10-14] VITALS: Ht 152.4 cm; Wt 100.0 kg
[2020-10-14 10:58] VITALS: TEMP 98.4
[2020-10-14] MEDS ORDERED: NORCO 325 MG-51 TAB PO (12:06)
[2020-10-14 12:34] VITALS: BP 130/90; PULSE 90
== END 2020-10-14 12:38 | disposition home or self-care (01) ==
LOC: COL.ER 10:47
DX: M25.461 Effusion, right knee (principal); G89.29 Other chronic pain; F17.210 Nicotine dependence, cigarettes, uncomplicated; Z88.6 Allergy status to analgesic agent; Z88.0 Allergy status to penicillin; Z79.52 Long term (current) use of systemic steroids; W10.9XXA Fall (on) (from) unspecified stairs and steps, initial encounter
CPT/HCPCS: L1846

== ENCOUNTER 2020-11-27 11:17 | Emergency (ER) | payer SELFPAY ==
[~2020-11-27] VITALS: Ht 152.4 cm; Wt 100.0 kg
[2020-11-27 11:30] VITALS: BP 115/79; TEMP 97.7
[2020-11-27 12:24] LABS: BASO # 0.1 (0.0-0.2); BASO % 0.6 % (0.0-2.0); EOS # 0.3 (0.0-0.7); EOS % 3.2 % (0-4.0); GRAN # 5.3 (1.4-6.5); GRAN % 60.8 % (42.2-75.2); HEMOGLOBIN 14.3 g/dl (12.5-16.0); LYMPH # 2.3 (1.2-3.4); LYMPH % 25.8 % (20.0-51.0); MEAN CELL VOLUME 88 fl (80.0-100.0); MEAN CORPUSCULAR HEMOGLOBIN 29 pg (27.0-31.0); MEAN CORPUSCULAR HGB CONC 33 g/dl (33.0-37.0); MEAN PLATELET VOLUME 9.7 fl (7.4-10.4); MONO # 0.8 (0.1-0.6); MONO % 8.9 % (1.7-9.3); PLATELET COUNT 303 K/mm3 (130-400); RED BLOOD COUNT 4.91 M/mm3 (4.10-5.30); REDCELL DISTRIBUTION WIDTH-CV 12.5 % (11.5-14.5)
[2020-11-27 12:31] LABS: ALBUMIN 4.1 gm/dL (3.5-5.0); BILIRUBIN,TOTAL 0.8 mg/dL (0.0-1.0); CREATININE, serum 0.59 (0.52-1.25); POTASSIUM 4.3 mmol/L (3.4-5.0); TOTAL PROTEIN 8.3 gm/dL (6.4-8.2)
[2020-11-27] MEDS ORDERED: MEDROL 4MG DOSPA4 MG PO (12:52)
[2020-11-27] MEDS ORDERED: IPRATROPIUM BROM3 M1 IH (12:55)
[2020-11-27 13:00] VITALS: PULSE 87
== END 2020-11-27 13:00 | disposition home or self-care (01) ==
LOC: COL.ER 11:17
PROVIDERS: Physician Assistant
DX: J45.909 Unspecified asthma, uncomplicated (principal); L72.8 Other follicular cysts of the skin and subcutaneous tissue; G89.29 Other chronic pain; F31.9 Bipolar disorder, unspecified; F17.210 Nicotine dependence, cigarettes, uncomplicated; Z88.6 Allergy status to analgesic agent; Z88.0 Allergy status to penicillin; Z79.52 Long term (current) use of systemic steroids

== ENCOUNTER 2021-07-06 20:06 | Emergency (ER) | payer SELFPAY ==
[~2021-07-06] VITALS: Ht 152.4 cm; Wt 101.4 kg
[~2021-07-06 20:06] MED LIST changes: +IPRATROPIUM BROM3 M1 IH
[2021-07-06 21:43] VITALS: BP 128/74; PULSE 74; TEMP 97.8
== END 2021-07-06 21:46 | disposition home or self-care (01) ==
LOC: COL.ER 20:06
DX: S63.602A Unspecified sprain of left thumb, initial encounter (principal); X50.0XXA Overexertion from strenuous movement or load, initial encounter; Y93.72 Activity, wrestling

== ENCOUNTER 2021-08-30 15:53 | Emergency (ER) | payer SELFPAY ==
[~2021-08-30] VITALS: Ht 152.4 cm; Wt 100.0 kg
[2021-08-30 16:05] VITALS: BP 140/82; TEMP 98.6
[2021-08-30 17:33] VITALS: PULSE 73
== END 2021-08-30 17:36 | disposition home or self-care (01) ==
LOC: COL.ER 15:53
DX: L72.0 Epidermal cyst (principal); J45.909 Unspecified asthma, uncomplicated; M41.9 Scoliosis, unspecified; Z79.899 Other long term (current) drug therapy
CPT/HCPCS: J2060

== ENCOUNTER 2021-09-02 13:04 | Emergency (ER) | payer SELFPAY ==
[~2021-09-02] VITALS: Ht 152.4 cm; Wt 100.0 kg
[2021-09-02 13:11] VITALS: BP 154/103; PULSE 56; TEMP 98.1
== END 2021-09-02 13:35 | disposition left against medical advice (07) ==
LOC: COL.ER 13:04
DX: J98.9 Respiratory disorder, unspecified (principal)

== ENCOUNTER 2022-05-01 14:15 | Emergency (ER) | payer SELFPAY ==
[~2022-05-01] VITALS: Ht 154.9 cm; Wt 76.8 kg
[2022-05-01 14:55] VITALS: BP 135/69; PULSE 69; TEMP 97.7
[2022-05-01] MEDS ORDERED: FLEXERIL 1010 MG/TAB PO (15:29)
== END 2022-05-01 18:48 | disposition home or self-care (01) ==
LOC: COL.ER 14:15
DX: M25.511 Pain in right shoulder (principal); F17.290 Nicotine dependence, other tobacco product, uncomplicated; Z88.6 Allergy status to analgesic agent